=== PATIENT | male | born 1950 | race Caucasian/White ===

== ENCOUNTER 2020-10-28 09:21 | Outpatient (CLI) | payer OTHER ==
[~2020-10-28 09:21] MED LIST: ASA81 MG; LIPITOR40 MG; PLAVIX75 MG
[2020-11-17] MEDS ORDERED: ATORVASTATIN CA40 MG PO (09:28)
[2020-11-17] MEDS ORDERED: TOPROL XL25 M1 PO (09:28)
== END 2020-10-28 09:27 | disposition home or self-care (01) ==
LOC: RAD 09:21
PROVIDERS: ATTEND Surgery
DX: R07.89 Other chest pain (principal); N52.31 Erectile dysfunction following radical prostatectomy

== ENCOUNTER 2020-11-24 05:05 | Day surgery (SDC) | payer OTHER ==
[~2020-11-24 05:05] MED LIST changes: +ATORVASTATIN CA40 MG PO; +TOPROL XL25 M1 PO
[2020-11-24] MEDS ORDERED: PERCOCET 5-3251 EACH PO (10:11)
== END 2020-11-24 17:00 | disposition home or self-care (01) ==
LOC: CIR.AMB 05:05
PROVIDERS: ATTEND Surgery
DX: N52.31 Erectile dysfunction following radical prostatectomy (principal); N48.6 Induration penis plastica
CPT/HCPCS: 54405; 54360; C1813

== ENCOUNTER 2021-09-28 07:12 | Outpatient (CLI) | payer OTHER ==
[~2021-09-28 07:12] MED LIST changes: +PERCOCET 5-3251 EACH PO
== END 2021-09-28 07:23 | disposition home or self-care (01) ==
LOC: MRI 07:12
PROVIDERS: ATTEND Internal Medicine Cardiovascular Disease
DX: M48.48XA Fatigue fracture of vertebra, sacral and sacrococcygeal region, initial encounter for fracture (principal)
CPT/HCPCS: 72148

== ENCOUNTER 2023-08-23 07:27 | Outpatient (CLI) | payer OTHER | END 2023-08-23 07:31 | disposition home or self-care (01) | LOC: RAD 07:27 | PROVIDERS: ATTEND Internal Medicine Cardiovascular Disease | DX: R07.9 Chest pain, unspecified (principal) ==